=== PATIENT | male | born 1990 | race Caucasian/White ===

== ENCOUNTER 2021-03-13 09:06 | Emergency (ER) | payer BC, SELFPAY ==
[2021-03-13 09:17] VITALS: BP 133/75; PULSE 75; RESP 18; TEMP 36.5; O2SAT 98; BMI 27.9
--- NOTE | 2021-03-13 10:58 | ED_ITS ---
HPI - Skin/Abscess/Foreign Bdy General Chief complaint: Skin/Abscess/Foreign Body Stated complaint: lump on back side Time Seen by Provider: 03/13/21 09:47 History of Present Illness HPI narrative: Patient complains of painful swollen area in gluteal cleft that has been worsening over the past 2 days no fever no chills no vomiting Related Data Previous Rx's Medication Instructions Recorded doxycycline hyclate 100 mg capsule 100 mg PO BID 7 Days #14 cap 03/13/21 ibuprofen 600 mg tablet 600 mg PO Q6H PRN #20 tab 03/13/21 Allergies Allergy/AdvReac Type Severity Reaction Status Date / Time No Known Allergies Allergy Verified 03/13/21 09:17 Review of Systems Review of Systems: Positive for painful area in the gluteal cleft Negatives are no fever no chills no dizziness weakness no headache no abdominal pain no nausea vomiting or diarrhea no dysuria PMFSH Past Medical History Source: nursing notes reviewed Medical History (Updated 03/13/21 @ 11:41 by JERALD Mao) No known health problems Social History Social History Advance Directives: No Advance Directives Information Provided: No Physical Exam Vital Signs: Vital Signs: Last Vital Signs Temp 97.7 F 03/13/21 09:17 Pulse 75 03/13/21 09:17 Resp 18 03/13/21 09:17 BP 133/75 03/13/21 09:17 Pulse Ox 98 03/13/21 09:17 BMI result Body Mass Index 27.9 General appearance is no acute distress Neck is supple Respiratory no distress Abdomen nontender Skin exam in the gluteal cleft pilonidal area there is a small area of redness and induration and tenderness, there is no discharge Extremities full range of motion x4 Course Course Course Narrative: Pilonidal abscess procedure note the pilonidal area of indura tion and redness was injected with 6 cc of 1% lidocaine with good anesthesia A 1 cm incision was made with discharge of both scant amount of pus and copious amounts of chunky white the cheese like material The wound was probed with forceps and packing was placed after a large quantity of white material was expressed Dressing applied Discharge Plan Discharge Clinical Impression: Infected pilonidal cyst Patient Disposition: Home, Self-Care Additional Instructions: A small amount of pus and a large amount of thick white material consistent with a sebaceous cyst was drained from the area Return to the ER in 2 days for packing removal, wound check Follow with surgeon as they may sometimes remove the cyst cavity or do a bigger procedure to prevent recurrence as an elective procedure Return any time for worse pain and swelling, spreading redness, any worse condition or sign of any worse infection Take doxycycline with food Prescriptions: New doxycycline hyclate 100 mg capsule 100 mg PO BID 7 Days Qty: 14 RF: 0 ibuprofen 600 mg tablet 600 mg PO Q6H PRN (Reason: pain) Qty: 20 RF: 0 Referrals: Alfonzo Lyn MD [Physician] - 10 days (Pilonidal cyst)
[2021-03-13] MEDS: Lidocaine HCl 1 % 20 ML VIAL SUBCUT (11:08)
== END 2021-03-13 12:02 | disposition home or self-care (01) ==
PROVIDERS: Emergency Provider Emergency Medicine
DX: L05.01 Pilonidal cyst with abscess (principal)
CPT/HCPCS: 10080; 99283; 99284

== ENCOUNTER 2021-03-15 07:12 | Emergency (ER) | payer BC, SELFPAY ==
[2021-03-15 07:15] VITALS: BP 131/69; PULSE 71; RESP 18; TEMP 36.6; O2SAT 99; BMI 27.1
--- NOTE | 2021-03-15 07:25 | ED.RECABL ---
HPI - Recheck/Abnormal Lab/Rx General Chief Complaint: Skin/Abscess/Foreign Body Stated Complaint: cyst on buttock/packing removal Time Seen by Provider: 03/15/21 07:25 Source: patient Mode of arrival: ambulatory Limitations: no limitations History of Present Illness complaint: wound re-check Initial visit (ago): day(s) (2) Initial visit for: abscess Returns today for: wound recheck (packing removing) Symptoms since prior visit: improved Context: planned re-check Associated symptoms: none Treatments prior to arrival: given antibiotics on (03/13 - doxycycline) Related Data Previous Rx's Medication Instructions Recorded doxycycline hyclate 100 mg capsule 100 mg PO BID 7 Days #14 cap 03/13/21 ibuprofen 600 mg tablet 600 mg PO Q6H PRN #20 tab 03/13/21 Allergies Allergy/AdvReac Type Severity Reaction Status Date / Time No Known Allergies Allergy Verified 03/15/21 07:15 Review of Systems Review of Systems: Constitutional : No Fever, No Chills, Cardiovascular : No Chest Pain, No SOB ENT: no sore throat, no rhinorrhea Respiratory : No Dyspnea Gastrointestinal : No abdominal pain Musculoskeletal : No Joint Swelling Skin : No rash, positive skin healing lesion Neuro : No Weakness, No Numbness PMFSH Past Medical History Medical History No known health problems Social History Social History (Updated 03/15/21 @ 07:26 by Audelia Amin DO) Patient Tobacco Use Status: Never used Tobacco Advance Directives: No Advance Directives Information Provided: No Physical Exam Vital Signs: Vital Signs: Last Vital Signs Temp 97.9 F 03/15/21 07:15 Pulse 71 03/15/21 07:15 Resp 18 03/15/21 07:15 BP 131/69 03/15/21 07:15 Pulse Ox 99 03/15/21 07:15 BMI result Body Mass Index 27.1 Appearance: Alert. Oriented X3. No acute distress. Eyes: Pupils equal, round and reactive to light. Neck: Normal inspection. Neck supple. CVS: Pulses normal. Respiratory: No respiratory distress. Abdomen: Soft and nontender. Skin: Skin warm and dry. Gluteal cleft packing in place area is non red no drainage noted - packing removed without issue tolerated well Extremities: No lower extremity edema. Neuro: Oriented X 3. No motor deficit. No sensory deficit. MDM - Recheck/Abnormal Lab/Rx MDM Narrative Medical decision making narrative: 30 yo male well healing pilonidal cyst on doxy doing well - packing removed without issue sent home with precautions Discharge Plan Discharge Clinical Impression: Abscess packing removal Patient Disposition: Home, Self-Care Instructions: Pilonidal Cyst (ED) Additional Instructions: return to ED for any worsening symptoms or concerns continue medications okay to shower monitor for redness, fevers, worsening drainage Prescriptions: No Action doxycycline hyclate 100 mg capsule 100 mg PO BID 7 Days Qty: 14 RF: 0 ibuprofen 600 mg tablet 600 mg PO Q6H PRN (Reason: pain) Qty: 20 RF: 0
== END 2021-03-15 08:34 | disposition home or self-care (01) ==
PROVIDERS: Emergency Provider Emergency Medicine
DX: Z48.01 Encounter for change or removal of surgical wound dressing (principal); L05.01 Pilonidal cyst with abscess
CPT/HCPCS: 99282; 99283

== ENCOUNTER → 2021-03-25 08:57 | Outpatient (BNVA) | payer BC, SELFPAY | PROVIDERS: Visit Provider Surgery ==